=== PATIENT | female | born 1985 | race Two or more races ===

== ENCOUNTER 2018-10-05 20:42 | Outpatient (CLI) | payer MEDICAID ==
[2018-10-05 20:49] VITALS: BP 123/63
[2018-10-05 22:05] LABS: APPEARANCE,URINE CLEAR; BILIRUBIN,URINE NEGATIVE (NEGATIVE); COLOR,URINE COLORLESS; GLUCOSE, URINE NEGATIVE (NEGATIVE); KETONES,URINE NEGATIVE (NEGATIVE); LEUKOCYTE ESTERASE,URINE NEGATIVE (NEGATIVE); NITRITE,URINE NEGATIVE (NEGATIVE); PROTEIN,URINE NEGATIVE (NEGATIVE); URINE SPECIFIC GRAVITY 1.005; UROBILINOGEN,URINE NEGATIVE mg/dL (<2.0)
[2018-10-05 22:32] LABS: URINE AMPHETAMINES SCREEN NEGATIVE; URINE BARBITURATES SCREEN NEGATIVE; URINE BENZODIAZEPINES SCREEN NEGATIVE; URINE COCAINE SCREEN NEGATIVE; URINE MARIJUANA (THC) SCREEN NEGATIVE; URINE METHADONE SCREEN NEGATIVE; URINE PHENCYCLIDINE SCREEN NEGATIVE
--- NOTE | 2018-10-05 23:57 | RADIOLOGY REPORT (SQ) ---
EXAM DESCRIPTION: US LIMITED COMPLETED DATE/TME: 10/05/2018 00:00 CLINICAL HISTORY: 33 years, Female, well being COMPARISON: None. TECHNIQUE: Transverse and longitudinal transabdominal sonographic images and transvaginal images in a second/third trimester patient LIMITATIONS: None. FINDINGS: The abrasive mixer helper questioned an area of thickening anterior to the placenta during the exam which could reflect placental shelf versus contraction.. The placenta is anterior in location with a grade 1/2 echotexture. No evidence for previa. There is a single, live, intrauterine gestation in the vertex presentation. Cervical length is 3.4 cm. heart tones obtained at 160 bpm. A detailed anatomic assessment was not performed. Largest vertical pocket obtained at 6.5 cm. Ratios: HC to a.c.: 1.13. FL to BPD: 67.9. FL to HC: 17.7. FL to a.c.: 20.0. Estimated weight 367 g. Current ultrasound age is 20 weeks 4 days IMPRESSION: Single, live intrauterine gestation with current ultrasound age 20 weeks 4 days. Continued nonemergent obstetric follow-up recommended. copyright 2010 [email or web address]- All Rights Reserved
[2018-10-06] MEDS ORDERED: HYDROXYZINE PAMOATE 50 MG CAPSULE ONE (00:19)
[2018-10-06] MEDS ORDERED: HYDROXYZINE PAMOATE 50 MG CAPSULE PO ONE (00:45)
== END 2018-10-06 01:01 | disposition home or self-care (01) ==
LOC: ER 20:42 → EDSTATUS 21:29 → LC 21:30
PROVIDERS: ATTEND Obstetrics & Gynecology
PROC: 4A1HXCZ Monitoring of Products of Conception, Cardiac Rate, External Approach (ICD-10-PCS; principal; 2018-10-05)
DX: O47.02 False labor before 37 completed weeks of gestation, second trimester (principal); Z3A.20 20 weeks gestation of pregnancy
CPT/HCPCS: 81001; 80307; 76815; 59899; J3490

== ENCOUNTER 2019-01-17 10:01 | Outpatient (CLI) | payer MEDICAID ==
[2019-01-17 10:52] LABS: APPEARANCE,URINE CLOUDY; BILIRUBIN,URINE NEGATIVE (NEGATIVE); COLOR,URINE YELLOW; GLUCOSE, URINE NEGATIVE (NEGATIVE); KETONES,URINE NEGATIVE (NEGATIVE); LEUKOCYTE ESTERASE,URINE NEGATIVE (NEGATIVE); NITRITE,URINE NEGATIVE (NEGATIVE); PROTEIN,URINE NEGATIVE (NEGATIVE); URINE SPECIFIC GRAVITY 1.011; UROBILINOGEN,URINE NEGATIVE mg/dL (<2.0)
[2019-01-17 11:22] LABS: URINE AMPHETAMINES SCREEN NEGATIVE; URINE BARBITURATES SCREEN NEGATIVE; URINE BENZODIAZEPINES SCREEN NEGATIVE; URINE COCAINE SCREEN NEGATIVE; URINE MARIJUANA (THC) SCREEN NEGATIVE; URINE METHADONE SCREEN NEGATIVE; URINE PHENCYCLIDINE SCREEN NEGATIVE
== END 2019-01-17 11:50 | disposition home or self-care (01) ==
LOC: LC 10:01
PROVIDERS: ATTEND Obstetrics & Gynecology
PROC: 4A1HXCZ Monitoring of Products of Conception, Cardiac Rate, External Approach (ICD-10-PCS; principal; 2019-01-17)
DX: O47.03 False labor before 37 completed weeks of gestation, third trimester (principal); O26.893 Other specified pregnancy related conditions, third trimester; M54.9 Dorsalgia, unspecified; Z3A.36 36 weeks gestation of pregnancy
CPT/HCPCS: 80307; 81001; 87086